=== PATIENT | female | born 1965 | race African-American/Black ===

== ENCOUNTER → 2017-08-25 | Outpatient (CLI) | payer OTHER ==
--- NOTE | 2017-08-25 18:08 | WOMENS IMAGING REPORT ---
EXAM DESCRIPTION: BILAT SCREENING MAMMO W/CAD COMPLETED DATE/TIME: 08/25/2017 1:13 pm REASON FOR STUDY: SCREENING MAMMO Z12.31 ENCNTR SCREEN MAMMOGRAM FOR MALIGNANT NEOPLASM OF FADY COMPARISON: Multiple since 2010 TECHNIQUE: Standard craniocaudal and mediolateral oblique views of each breast recorded using digita l acquisition. LIMITATIONS: None. FINDINGS: Findings present which are benign by mammographic criteria. No suspicious masses, calcifi cations or architectural distortion. Pertinent benign findings: Stable 5 mm nodule left breast 12 o'clock position cm from the nipple. Read with the assistance of CAD. .[facility] - R2 Cenova Version 1.3 .[facility] - R2 Cenova Version 1.3 .[facility] - R2 Cenova Version 2.4 .[facility] [place] - R2 Cenova Version 2.4 .[facility] - R2 Curriculum Supervisor Version 9.2 Benign mammographic findings may include one or more of the following: Smooth masses, popcorn/rim/co arse calcifications, asymmetries, post-procedure changes, and lesions with long-standing stability. IMPRESSION: BENIGN MAMMOGRAPHIC FINDINGS. BIRADS 2 BREAST DENSITY: b. There are scattered areas of fibroglandular density. BIRAD: 2 BENIGN FINDING(S) RECOMMENDATION: ROUTINE SCREENING Please continue yearly bilateral screening tomosynthesis in July 2018 COMMENT: The patient has been notified of the results by letter per [place] requirements. Additional no tification policies are in place for contacting patient with suspicious or incomplete findings. Quality ID #[id number]: The [employer] recommends an annual screening mammogram for women aged 40 years or over. This facility utilizes a reminder system to ensure that all patients receive reminder letters, and/or direct phone calls for appointments. This includes reminders for routine scr eening mammograms, diagnostic mammograms, or other Breast Imaging Interventions when appropriate. Th is patient will be placed in the appropriate reminder system. The [employer] (ACR) has developed recommendations for screening MRI of the breast s in certain patient populations, to be used in conjunction with mammography. Breast MRI surveillanc e may be appropriate for women with more than 20% lifetime risk of developing breast cancer as deter mined by genetic testing, significant family history of the disease, or history of mantle radiation f or Hodgkins Disease. ACR Practice Guidelines 2008. TECHNICAL DOCUMENTATION: FINDING NUMBER: (1) ASSESSMENT: (1) JOB ID: [id number] [employer]- All Rights Reserved
== END ==
LOC: WI 12:54
PROVIDERS: ATTEND Internal Medicine
DX: Z12.31 Encounter for screening mammogram for malignant neoplasm of breast (principal)
CPT/HCPCS: 77067; G0202

== ENCOUNTER 2019-01-04 00:36 | Emergency (ER) | payer OTHER ==
[2019-01-04] MEDS ORDERED: TETRACAINE HCL 0.5% OPH SOLN 4 ML OS ONE (01:20)
[2019-01-04 01:24] VITALS: BP 132/85
--- NOTE | 2019-01-04 01:56 | ER Document Report ---
ED General - General Chief Complaint: Foreign Body in Eye Stated Complaint: EYE PROBLEM Time Seen by Provider: 01/04/19 00:57 Primary Care Provider: RADHA GORE MD [Primary Care Provider] - Follow up as needed TRAVEL OUTSIDE OF THE [place] IN LAST 30 DAYS: No - HPI Notes: Patient presents to the emergency department for evaluation. She just got new hard contact lenses today. She placed her left contact lens and is unable to remove it. Her and her have tried for several hours without success. She denies any eye pain. She does have a local eye doctor. - Related Data Allergies/Adverse Reactions: acetaminophen [From Percocet] Allergy (Intermediate, Unverified 05/21/12 19:42) oxycodone HCl [From Percocet] Allergy (Intermediate, Unverified 05/21/12 19:42) Penicillins Allergy (Intermediate, Unverified 05/21/12 19:42) CONTRAST DYE Allergy (Uncoded 08/23/12 11:17) Past Medical History - General Information source: Patient - Social History Smoking Status: Never Smoker Family History: Reviewed & Not Pertinent Patient has suicidal ideation: No Patient has homicidal ideation: No - Past Medical History Cardiac Medical History: Denies: Hx Heart Attack, Hx Hypertension Pulmonary Medical History: Denies: Hx Asthma Neurological Medical History: Denies: Hx Cerebrovascular Accident, Hx Seizures Renal/ Medical History: Denies: Hx Peritoneal Dialysis GI Medical History: Denies: Hx Hepatitis, Hx Hiatal Hernia, Hx Ulcer Infectious Medical History: Denies: Hx Hepatitis Past Surgical History: Reports: Hx Adenoidectomy. Denies: Hx Mastectomy, Hx Open Heart Surgery, Hx Pacemaker Review of Systems - Review of Systems Constitutional: No symptoms reported EENT: See HPI Cardiovascular: No symptoms reported Respiratory: No symptoms reported Gastrointestinal: No symptoms reported Physical Exam - Vital signs Vitals: Temp Pulse Resp BP Pulse Ox 98.2 F 73 17 132/85 H 100 01/04/19 00:41 01/04/19 00:41 01/04/19 00:41 01/04/19 00:41 01/04/19 00:41 Notes: Reviewed - General General appearance: Appears well In distress: None - HEENT Head: Normocephalic Extraocular movements intact: Yes Pupils: PERRL - Examination of the left eye yields a very mild amount of conjunctival erythema. Contact lens is visualized over the cornea. - Respiratory Respiratory status: No respiratory distress Breath sounds: Normal - Cardiovascular Rhythm: Regular Course - Re-evaluation Re-evalutation: 01/04/19 01:55 Patient presented to the emergency department for evaluation. She was unable to move her left contact lens. The eye was anesthetized with 1 drop of tetracaine solution. Once adequate anesthesia was achieved I did did successfully remove the contact lens using a pair of blunt edge tweezers. Patient tolerated this well. We will have her follow-up with her eye doctor tomorrow. She is to return the emergency department with worsening or new concerning symptoms. - Vital Signs Vital signs: Temp Pulse Resp BP Pulse Ox 98.2 F 73 17 132/85 H 100 01/04/19 00:41 01/04/19 00:41 01/04/19 00:41 01/04/19 00:41 01/04/19 00:41 Discharge - Discharge Clinical Impression: Contact lens stuck Additional Instructions: Follow-up with your eye doctor tomorrow. Return to the emergency department with worsening or new concerning symptoms. Referrals: RADHA GORE MD [Primary Care Provider] - Follow up as needed
== END 2019-01-04 02:02 | disposition home or self-care (01) ==
LOC: ER 00:36
DX: H18.829 Corneal disorder due to contact lens, unspecified eye (principal); Z88.5 Allergy status to narcotic agent; Z88.0 Allergy status to penicillin; Z91.041 Radiographic dye allergy status
CPT/HCPCS: 99283; J3490

== ENCOUNTER 2019-04-16 22:39 | Emergency (ER) | payer OTHER ==
[2019-04-16 22:53] VITALS: BP 145/89
[2019-04-16] MEDS ORDERED: TETRACAINE HCL 0.5% OPH SOLN 4 ML OS ONE (23:58)
--- NOTE | 2019-04-17 00:01 | ER Document Report ---
ED General - General Chief Complaint: Eye Problem Stated Complaint: CONTACT STUCK IN EYE Time Seen by Provider: 04/16/19 23:56 Primary Care Provider: RADHA GORE MD [Primary Care Provider] - Follow up as needed Notes: Patient is a 54-year-old female presents with complaint of having a contact stuck in left eye. 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 She says it from the front of your out the appropriate contact for her. She says she put on contact earlier this morning has been unable to get it off. She did have this happen once before and had to come to the ER to have a contact remov ed. She has no other complaints at this time. TRAVEL OUTSIDE OF THE [place] IN LAST 30 DAYS: No - Related Data Allergies/Adverse Reactions: acetaminophen [From Percocet] Allergy (Intermediate, Unverified 05/21/12 19:42) oxycodone HCl [From Percocet] Allergy (Intermediate, Unverified 05/21/12 19:42) Penicillins Allergy (Intermediate, Unverified 05/21/12 19:42) CONTRAST DYE Allergy (Uncoded 08/23/12 11:17) Past Medical History - Social History Smoking Status: Unknown if Ever Smoked Frequency of alcohol use: None Drug Abuse: None Family History: Reviewed & Not Pertinent - Past Medical History Cardiac Medical History: Denies: Hx Heart Attack, Hx Hypertension Pulmonary Medical History: Denies: Hx Asthma Neurological Medical History: Denies: Hx Cerebrovascular Accident, Hx Seizures Renal/ Medical History: Denies: Hx Peritoneal Dialysis GI Medical History: Denies: Hx Hepatitis, Hx Hiatal Hernia, Hx Ulcer Infectious Medical History: Denies: Hx Hepatitis Past Surgical History: Reports: Hx Adenoidectomy. Denies: Hx Mastectomy, Hx Open Heart Surgery, Hx Pacemaker Review of Systems - Review of Systems Notes: My Normal Review Basic REVIEW OF SYSTEMS: CONSTITUTIONAL : Denies fever, chills, or sweats. Denies recent illness. EENT: Contact stuck on left eye. ALL OTHER SYSTEMS REVIEWED AND NEGATIVE. Physical Exam - Vital signs Vitals: Temp Pulse Resp BP 98.2 F 70 18 145/89 H 04/16/19 22:52 04/16/19 22:52 04/16/19 22:52 04/16/19 22:52 - Notes Notes: General Appearance: Well nourished, alert, cooperative, no acute distress, no obvious discomfort. Well-appearing. Vitals: reviewed, See vital signs table. Head: no swelling or tenderness to the head Eyes: PERRL, EOMI, Conjuctiva clear. Heart contact lens in place on left eye. No redness or swelling to eye. Neuro: speech clear, oriented x 3, normal affect, responds appropriately to questions. Course - Re-evaluation Re-evalutation: 04/17/19 00:20 I was anesthetized with tetracaine. Contact was removed with blunt tip tweezers. Patient tolerated procedure well without any complications. I did do fluorescein staining of the eye after contact was removed. There is no evidence of ulceration or abrasion. No signs of globe rupture. Eyes normal-appearing except for some erythema to conjunctiva. I will place her on Besivance eyedrops. I encouraged her follow-up with her eye doctor this coming week. Patient agrees with plan will be discharged home. - Vital Signs Vital signs: Temp Pulse Resp BP Pulse Ox 98.2 F 70 18 145/89 H 04/16/19 22:52 04/16/19 22:52 04/16/19 22:52 04/16/19 22:52 Discharge - Discharge Clinical Impression: Contact lens stuck Condition: Good Disposition: HOME, SELF-CARE Additional Instructions: Please apply the Besifloxacin eye drop to your left eye three times a day for 7 days. Please follow up with your eye doctor this coming week.
[2019-04-17] MEDS ORDERED: BESIFLOXACIN HCL 0.6% OPH SUSP 5 ML BOTTLE OS ONE (00:20)
== END 2019-04-17 00:40 | disposition home or self-care (01) ==
LOC: ER 22:39
DX: T15.92XA Foreign body on external eye, part unspecified, left eye, initial encounter (principal); X58.XXXA Exposure to other specified factors, initial encounter
CPT/HCPCS: 99283; J3490

== ENCOUNTER → 2019-05-18 | Outpatient (CLI) | payer OTHER ==
--- NOTE | 2019-05-18 15:17 | WOMENS IMAGING REPORT ---
EXAM DESCRIPTION: 3D SCREENING MAMMO BILAT COMPLETED DATE/TIME: 05/18/2019 2:51 pm REASON FOR STUDY: Z12.31 ENCOUNTER FOR SCREENING MAMMOGRAM FOR MALIGNANT NEOPLASM OF BREAST Z12.31 ENCNTR SCREEN MAMMOGRAM FOR MALIGNANT NEOPLASM OF FADY COMPARISON: 08/25/2017 and 07/05/2014. EXAM PARAMETERS: Standard craniocaudal and mediolateral oblique views of each breast recorded using digital acquisition and breast tomosynthesis. Read with the assistance of CAD. .[facility] - [address] Clerk Version 9.2 LIMITATIONS: None. FINDINGS: RIGHT BREAST MASSES: No suspicious masses. CALCIFICATIONS: No new or suspicious calcifications. ARCHITECTURAL DISTORTION: None. DEVELOPING DENSITY: None. ASYMMETRY: None noted. OTHER: No other significant findings. LEFT BREAST MASSES: No suspicious masses. CALCIFICATIONS: No new or suspicious calcifications. ARCHITECTURAL DISTORTION: None. DEVELOPING DENSITY: Circumscribed oval nodule in the lateral breast, located 10.5 cm from the nipple, best visualized on the CC image. ASYMMETRY: None noted. OTHER: No other significant findings. IMPRESSION: Developing density in the lateral left breast. Stable mammographic appearance of the ri ght breast 0 Incomplete: Needs Additional Imaging Evaluation and/or prior Mammograms for Comparison. BREAST DENSITY: b. There are scattered areas of fibroglandular density. BIRAD: ASSESSMENT: 0 Incomplete: Needs Additional Imaging Evaluation and/or prior Mammograms for C omparison. RECOMMENDATION: RECOMMENDED FOLLOW-UP: Recommend additional evaluation with ultrasound of the left b reast. Recommend routine screening mammography of the right breast. The patient will be contacted for additional imaging. COMMENT: The patient has been notified of the results by letter per [place] requirements. Additional no tification policies are in place for contacting patient with suspicious or incomplete findings. Quality ID #[id number]: The [employer] recommends an annual screening mammogram for women aged 40 years or over. This facility utilizes a reminder system to ensure that all patients receive reminder letters, and/or direct phone calls for appointments. This includes reminders for routine scr eening mammograms, diagnostic mammograms, or other Breast Imaging Interventions when appropriate. Th is patient will be placed in the appropriate reminder system. TECHNICAL DOCUMENTATION: FINDING NUMBER: (1) ASSESSMENT: (1) JOB ID: [id number] [employer]- All Rights Reserved Reading location - IP/workstation name: [email or web address]
== END ==
LOC: WI 14:33
PROVIDERS: ATTEND Internal Medicine
DX: Z12.31 Encounter for screening mammogram for malignant neoplasm of breast (principal)
CPT/HCPCS: 77063; 77067

== ENCOUNTER → 2019-06-08 | Outpatient (CLI) | payer OTHER ==
--- NOTE | 2019-06-09 14:03 | WOMENS IMAGING REPORT ---
EXAM DESCRIPTION: U/S BREAST UNILAT LIMITED COMPLETED DATE/TIME: 06/08/2019 1:43 pm REASON FOR STUDY: LEFT BREAST NODULE R92.2 R92.2 INCONCLUSIVE MAMMOGRAM COMPARISON: Mammograms 05/18/2019 TECHNIQUE: Real-time and static grayscale imaging performed of the left breast targeted to the area of clinical/mammographic concern. Selected color Doppler images recorded. LIMITATIONS: None. FINDINGS: In the 3 o'clock position, 11 x 4 x 11 mm hypoechoic lesion with internal echoes and echog enic capsule. No posterior shadowing. IMPRESSION: Probable benign fibroadenoma or atypical cyst. BIRAD: 3 Probably benign finding. Initial short-interval follow-up suggested. RECOMMENDATION: RECOMMENDED FOLLOW-UP: Six-month ultrasound follow-up left breast. COMMENT: The [employer] (ACR) has developed recommendations for screening MRI of the breasts in certain patient populations, to be used in conjunction with mammography. Breast MRI s urveillance may be appropriate for women with more than 20% lifetime risk of developing breast cancer as determined by genetic testing, significant family history of the disease, or history of mantle r adiation for Hodgkins Disease. ACR Practice Guidelines 2008. TECHNICAL DOCUMENTATION: JOB ID: [id number] [employer]- All Rights Reserved Reading location - IP/workstation name: [email or web address]
== END ==
LOC: WI 13:09
PROVIDERS: ATTEND Internal Medicine
DX: R92.2 Inconclusive mammogram (principal)
CPT/HCPCS: 76642